=== PATIENT | female | born 1950 | race Caucasian/White ===

== ENCOUNTER → 2017-08-24 | Day surgery (SDC) | payer MEDICARE, BC ==
[~2017-08-24] MED LIST: ALPR.25 PO; DIPH25CA PO; FLUT1SPR5 EACH NARE; LEXA10TA PO; LIDOCAINE HCL 1% 30 ML VIAL INFIL ONE; LOPE-1 PO; MAGN400T2 PO; MAPA500T13 PO; MEPERIDINE HCL 25 MG/ML VIAL IV ONE; METR250T23 PO; PREV30CA36 PO; PROPOFOL 200 MG/20 ML AMP IV ONE; RANI150T PO; SODIUM CHLORIDE 0.9% 10 ML VIAL ONE; TRAM50TA PO; ZOFR8TAB PO; methylPREDNISolone ACETATE 80 MG/ML VIAL ONE
== END | disposition home or self-care (01) ==
LOC: PHSDC 07:38
PROVIDERS: ATTEND Pain Medicine Interventional Pain Medicine
DX: M54.16 Radiculopathy, lumbar region (principal); M79.662 Pain in left lower leg; M41.9 Scoliosis, unspecified
CPT/HCPCS: 62323; 99152; J1040; J2175